=== PATIENT | male | born 1975 | race American Indian/Alaskan Native ===

== ENCOUNTER 2017-01-14 09:50 | Emergency (ER) | payer BC, OTHER ==
[2017-01-14 10:09] VITALS: BP 118/75
--- NOTE | 2017-01-14 10:18 | Emergency Department Report ---
ED Male HPI - General Chief complaint: Urogenital-Male Stated complaint: POSS STD/DISCHARGE Time Seen by Provider: 01/14/17 10:16 Source: patient Mode of arrival: Ambulatory Limitations: No Limitations - History of Present Illness -: Sudden Location: penis Radiation: none Severity scale (0 -10): 0 Improves with: none Worsens with: none discharge. denies: swelling, rash, urinary retention, blood in urine, dysuria, fever, nausea/vomiting - Related Data Previous Rx's Medication Instructions Recorded Last Taken Type Doxycycline [Vibramycin CAP] 100 mg PO Q12HR #20 capsule 01/14/17 Unknown Rx Allergies Allergy/AdvReac Type Severity Reaction Status Date / Time No Known Allergies Allergy Verified 01/14/17 10:06 ED Review of Systems ROS: Stated complaint: POSS STD/DISCHARGE Other details as noted in HPI Comment: All other systems reviewed and negative Constitutional: denies: see HPI, chills Eyes: denies: eye pain, eye discharge ENT: denies: throat pain Gastrointestinal: denies: abdominal pain, nausea, vomiting, diarrhea Genitourinary: discharge. denies: urgency, dysuria, frequency, hematuria Musculoskeletal: denies: joint swelling, arthralgia, myalgia Skin: denies: rash, lesions Neurological: denies: headache, weakness Other: Patient complaining of painless, clear penile discharge that started this morning. Patient relates unprotected sexual encounter last night. Patient denies any prior sexual encounter in the past several months. Patient denies fever, chills, testicular pain, hematuria, abdominal pain, back pain, rashes. Patient states he has no known prior STD history. ED Past Medical Hx - Past Medical History Previous Medical History?: No - Surgical History Additional Surgical History: Right wrist surgery - Social History Smoking Status: Current Every Day Smoker Substance Use Type: None - Medications Home Medications: Home Medications Medication Instructions Recorded Confirmed Last Taken Type Doxycycline [Vibramycin CAP] 100 mg PO Q12HR #20 capsule 01/14/17 Unknown Rx ED Physical Exam - General Limitations: No Limitations General appearance: alert, in no apparent distress - Eye Eye exam: Present: normal appearance, PERRL, EOMI Pupils: Present: normal accommodation - ENT ENT exam: Present: normal exam, normal orophraynx, mucous membranes moist - Neck Neck exam: Present: normal inspection. Absent: lymphadenopathy - Respiratory Respiratory exam: Present: normal lung sounds bilaterally - Cardiovascular Cardiovascular Exam: Present: regular rate - GI/Abdominal GI/Abdominal exam: Present: soft. Absent: distended, tenderness, guarding, rebound, rigid, hernia - exam: Present: normal inspection, circumcision. Absent: testicular tenderness, urethral discharge, scrotal swelling, vertical testicular lie External exam: Present: normal external exam. Absent: erythema, swelling, lesions, lacerations, ecchymosis - Back Exam Back exam: Present: normal inspection, full ROM. Absent: CVA tenderness (R), CVA tenderness (L) - Skin Skin exam: Present: warm, dry, intact. Absent: rash, urticaria, vesicles ED Course Vital Signs 01/14/17 10:07 Temperature 98.0 F Pulse Rate 87 Respiratory 17 Rate Blood Pressure 118/75 O2 Sat by Pulse 97 Oximetry - Reevaluation(s) Reevaluation #1: 01/14/17 10:31 I explained to patient that although unlikely he is already exhibiting signs of chlamydial/gonorrhea infection post 24-hour intercourse. I will still empirically treat patient for GC, and a should understands to follow-up with health department for further testing. Critical care attestation.: If time is entered above; I have spent that time in minutes in the direct care of this critically ill patient, excluding procedure time. ED Disposition Clinical Impression: Penile discharge, without blood Disposition: DISCHARGED TO HOME OR SELFCARE Is pt being admited?: No Condition: Stable Instructions: Sexually Transmitted Diseases (ED), Safe Sex (ED) Prescriptions: Doxycycline [Vibramycin CAP] 100 mg PO Q12HR #20 capsule
[2017-01-14] MEDS ORDERED: ROCEPHIN IM ONE (10:26)
[2017-01-14] MEDS ORDERED: XYLOCAINE 1% MPF 5 mL INFILTRATI ONE (10:26)
[2017-01-14] MEDS ORDERED: ZITHROMAX PO ONE (10:26)
[2017-01-14 11:16] LABS: Bilirubin,Urine NEG (Negative); Blood,Urine NEG (Negative); Ketones,Urine NEG (Negative); Leukocyte Esterase,Urine NEG (Negative); Nitrite,Urine NEG (Negative); Protein,Urine <15 mg/dL mg/dL (Negative); RBC,Urine < 1.0 /HPF (0.0-6.0); Urobilinogen,Urine < 2.0 mg/dL (<2.0); WBC,Urine < 1.0 /HPF (0.0-6.0)
== END 2017-01-14 11:00 | disposition home or self-care (01) ==
LOC: ED 09:50
DX: R36.9 Urethral discharge, unspecified (principal); F17.200 Nicotine dependence, unspecified, uncomplicated
CPT/HCPCS: 81001; 87591; 96372; 99283; J0696